=== PATIENT | male | born 1995 ===

== ENCOUNTER 2017-02-11 13:33 | Emergency (ER) | payer SELFPAY ==
[2017-02-11 13:43] VITALS: PULSE 97; TEMP 98.7
[2017-02-11] MEDS ORDERED: Sodium Chloride 0.9% 1,000 ML IV ONE (14:32)
[2017-02-11] MEDS ORDERED: Sodium Chloride 0.9% 1,000 ML ONE (14:44)
--- NOTE | 2017-02-11 14:45 | C.PDOC ---
History Of Present Illness 21 y/o male reports withdrawal symptoms from heroin abuse. Last use 2 days ago. States he was using daily. Reports abdominal pain, vomiting, diarrhea, weakness. Patient requesting detox. Denies any other drug use, SI/HI, or other complaints. Time Seen by Provider: 02/11/17 14:17 Chief Complaint (Nursing): Substance Abuse History Per: Patient History/Exam Limitations: no limitations Current Symptoms Are (Timing): Still Present Modifying Factor(s): None Past Medical History Reviewed: Historical Data, Nursing Documentation, Vital Signs Vital Signs: Last Vital Signs Temp 98.7 F 02/11/17 13:39 Pulse 97 H 02/11/17 13:39 Resp 18 02/11/17 13:39 BP 120/73 02/11/17 13:39 Pulse Ox 97 02/11/17 15:08 - Medical History PMH: No Chronic Diseases Family History: States: Unknown Family Hx - Social History Hx Alcohol Use: No Hx Substance Use: Yes (HEROIN) Review Of Systems Except As Marked, All Systems Reviewed And Found Negative. Constitutional: Positive for: Weakness. Negative for: Fever, Chills Cardiovascular: Negative for: Chest Pain Respiratory: Negative for: Cough, Shortness of Breath Gastrointestinal: Positive for: Vomiting, Abdominal Pain Genitourinary: Negative for: Dysuria Musculoskeletal: Negative for: Neck Pain Neurological: Negative for: Dizziness Psych: Positive for: Withdrawal Physical Exam - Physical Exam Appears: Non-toxic, No Acute Distress Skin: Normal Color, Warm, Dry Head: Atraumatic, Normacephalic Eye(s): bilateral: Normal Inspection, PERRL, EOMI Oral Mucosa: Moist Chest: Symmetrical Cardiovascular: Rhythm Regular Respiratory: Normal Breath Sounds, No Rales, No Rhonchi, No Wheezing Gastrointestinal/Abdominal: Soft, Tenderness (generalized), No Distention, No Guarding, No Rebound Back: Normal Inspection, No CVA Tenderness Extremity: Normal ROM, Capillary Refill (< 2 sec.) Neurological/Psych: Oriented x3, Normal Speech, Normal Cognition ED Course And Treatment O2 Sat by Pulse Oximetry: 97 (RA) Pulse Ox Interpretation: Normal Medical Decision Making Medical Decision Making: Treated with Bentyl, Pepcid, Toradol, Zofran, and IVFs. UA and UDS ordered. Explained to patient that no detox beds are currently available. Given outpatient resource information. Disposition Counseled Patient/Family Regarding: Need For Followup, Rx Given - Disposition Disposition: HOME/ ROUTINE Disposition Time: 15:36 Condition: STABLE Additional Instructions: Por favor llame al [phone] o al [phone] para informarse sobre nuestra disponibilidad de Detox, puede hablar con el coordinador [employer] [place] los medicamentos necesarios para los sntomas [place] Prescriptions: DiphenhydrAMINE [Benadryl] 25 mg PO Q4H PRN #30 cap PRN Reason: Anxiety Ibuprofen [Motrin] 600 mg PO Q8 #30 tab Loperamide [Imodium] 2 mg PO PRN PRN #10 cap PRN Reason: Diarrhea Ondansetron ODT [Zofran ODT] 1 odt PO BID PRN #6 odt PRN Reason: Nausea/Vomiting Instructions: Narcotic Abuse (ED) Print Language: SOMALI - POA Present On Arrival: None - Clinical Impression Clinical Impression: Heroin abuse - PA / GUSSET STITCHER / Resident Statement MD/DO has reviewed & agrees with the documentation as recorded. - Scribe Statement The provider has reviewed the documentation as recorded by the Scribe All medical record entries made by the Scribe were at my direction and personally dictated by me. I have reviewed the chart and agree that the record accurately reflects my personal performance of the history, physical exam, medical decision making, and the department course for this patient. I have also personally directed, reviewed, and agree with the discharge instructions and disposition.
[2017-02-11 15:14] LABS: URINE BILIRUBIN NEGATIVE (NEGATIVE); URINE BLOOD NEGATIVE (NEGATIVE); URINE COLOR Yellow (YELLOW); URINE GLUCOSE (UA) NORMAL (Normal); URINE KETONE NEGATIVE (NEGATIVE); URINE LEUKOCYTE ESTERASE NEG Leu/uL (Negative); URINE PROTEIN NEGATIVE (NEGATIVE); URINE UROBILINOGEN NORMAL mg/dL (0.2-1.0); WBC URINE 1 /hpf (0-5)
[2017-02-11 15:57] VITALS: BP 144/78; RESP 20
[2017-02-11 16:10] VITALS: O2SAT 97
== END 2017-02-11 16:03 | disposition home or self-care (01) ==
LOC: C.ER 13:33
DX: F11.10 Opioid abuse, uncomplicated (principal)
CPT/HCPCS: 81001; 96361; 96374; 96375; 99283; G0480; J1885; J2405; J7040

== ENCOUNTER 2017-02-11 23:25 | Emergency (ER) | payer SELFPAY ==
[2017-02-11] MEDS ORDERED: Sodium Chloride 0.9% 1,000 ML IV ONE (23:44)
--- NOTE | 2017-02-12 00:09 | C.PDOC ---
History Of Present Illness Patient returns after earlier evaluation for apparent heroin withdrawal symptoms. He was discharged this afternoon with prescriptions for Zofran, Motrin , Benadryl and Immodium for symptoms. He complains of persistent abdominal pain and vomiting despite taking Zofran 2 hours ago. He was brought by EMS, vomiting in the ambulance. He states he normally used 8-10 bags of heroin a day and last used 3 days ago. Time Seen by Provider: 02/11/17 23:39 Chief Complaint (Nursing): Substance Abuse History Per: Patient History/Exam Limitations: no limitations Onset/Duration Of Symptoms: Days (1) Current Symptoms Are (Timing): Still Present Past Medical History Vital Signs: Last Vital Signs Temp 98.7 F 02/11/17 23:37 Pulse 65 02/11/17 23:37 Resp 18 02/11/17 23:37 BP 131/78 02/11/17 23:37 Pulse Ox 100 02/12/17 00:12 - Medical History PMH: No Chronic Diseases Surgical History: No Surg Hx Family History: States: Unknown Family Hx - Social History Hx Tobacco Use: No Hx Alcohol Use: Yes Hx Substance Use: Yes (HEROIN) - Immunization History Hx Tetanus Toxoid Vaccination: No Hx Influenza Vaccination: No Hx Pneumococcal Vaccination: No Review Of Systems Except As Marked, All Systems Reviewed And Found Negative. Constitutional: Positive for: Chills, Sweats Gastrointestinal: Positive for: Nausea, Vomiting, Abdominal Pain, Diarrhea Physical Exam - Physical Exam Appears: In Acute Distress Skin: Normal Color, Warm, Dry Head: Atraumatic, Normacephalic Eye(s): bilateral: Normal Inspection, PERRL, EOMI Lips: Normal Appearing Chest: Symmetrical Cardiovascular: Rhythm Regular Respiratory: Normal Breath Sounds Gastrointestinal/Abdominal: Bowel Sounds (normal), Soft, Tenderness (diffusely) , No Mass, No Distention, No Guarding, No Rebound Extremity: Normal ROM Neurological/Psych: Oriented x3, Normal Speech, Normal Cognition ED Course And Treatment - Laboratory Results Result Diagrams: 02/12/17 00:17 O2 Sat by Pulse Oximetry: 100 Pulse Ox Interpretation: Normal Progress Note: Patient treated with IV fluids and po Clonidine. Reevaluation Time: 00:51 Reassessment Condition: Improved (but still c/o abdominal pain but has not further vomiting. Abdomen now is soft.) Disposition - Disposition Referrals: [facility] [Outside] Disposition: HOME/ ROUTINE Disposition Time: 00:52 Condition: STABLE Prescriptions: Ondansetron ODT [Zofran ODT] 4 mg PO QID PRN #20 odt PRN Reason: Nausea/Vomiting Instructions: Opioid Withdrawal (ED) - Clinical Impression Clinical Impression: Heroin withdrawal
[2017-02-12] MEDS ORDERED: Sodium Chloride 0.9% 1,000 ML ONE (00:18)
[2017-02-12 00:21] LABS: BASO % 0.3 % (0.0-2.0); EOS % 0.1 % (0.0-4.0); HEMATOCRIT 45.5 % (35.0-51.0); LYMPH # 1.8 K/uL (1.0-4.3); LYMPH % 13.1 % (20.0-40.0); MEAN CELL VOLUME 87.6 fL (80.0-94.0); MEAN CORPUSCULAR HEMOGLOBIN 29.5 pg (27.0-31.0); MEAN CORPUSCULAR HGB CONC 33.7 g/dL (33.0-37.0); MEAN PLATELET VOLUME 8.6 fL (7.2-11.7); MONO # 0.4 K/uL (0.0-0.8); MONO % 3.2 % (0.0-10.0); RED CELL DISTRIBUTION WIDTH 13.3 % (11.5-14.5); WHITE BLOOD COUNT 13.9 K/uL (4.8-10.8)
[2017-02-12 00:51] LABS: CHLORIDE 113 mmol/L (98-107)
[2017-02-12 00:53] LABS: POTASSIUM 3.5 mmol/L (3.6-5.2); SODIUM 147 mmol/L (132-148)
[2017-02-12 00:56] LABS: ALB/GLOB RATIO 1.6 (1.0-2.1); ALKALINE PHOSPHATASE 96 U/L (38-126); ALT/SGPT 41 U/L (21-72); AST/SGOT 30 U/L (17-59); BILIRUBIN,TOTAL 0.8 mg/dL (0.2-1.3); BLOOD UREA NITROGEN 8 mg/dL (9-20); CALCIUM 10.1 mg/dl (8.6-10.4); CARBON DIOXIDE 18 mmol/L (22-30); GFR AFRICAN-AMERICAN > 60; GLUCOSE,RANDOM 93 mg/dL (75-110); TOTAL PROTEIN 8.3 g/dL (6.3-8.3)
[2017-02-12 00:57] LABS: ALCOHOL SERUM < 10 mg/dl (0-10)
[2017-02-12 01:18] LABS: RBC URINE 1 /hpf (0-3); URINE BILIRUBIN NEGATIVE (NEGATIVE); URINE BLOOD NEGATIVE (NEGATIVE); URINE COLOR Yellow (YELLOW); URINE GLUCOSE (UA) NORMAL (Normal); URINE KETONE 1+ mg/dL (NEGATIVE); URINE LEUKOCYTE ESTERASE 1+ Leu/uL (Negative); URINE PROTEIN 1+ mg/dL (NEGATIVE); URINE UROBILINOGEN NORMAL mg/dL (0.2-1.0); WBC URINE 5 /hpf (0-5)
[2017-02-12 01:30] VITALS: BP 130/76; PULSE 89; RESP 20; TEMP 97; O2SAT 98
== END 2017-02-12 01:30 | disposition home or self-care (01) ==
LOC: C.ER 23:25
DX: F11.23 Opioid dependence with withdrawal (principal)
CPT/HCPCS: 80053; 81001; 85025; 96361; 96374; 96375; 99285; G0480; J1885; J2405; J7040